=== PATIENT | female | born 1950 | race Caucasian/White ===

== ENCOUNTER 2016-08-02 22:05 | Emergency (ER) | payer MEDICARE, OTHER ==
[~2016-08-02] VITALS: Ht 172.7 cm; Wt 90.9 kg
[2016-08-02 22:08] VITALS: BP 129/76; PULSE 44; RESP 20; O2SAT 97
--- NOTE | 2016-08-02 22:22 | ED.REPORT ---
HPI-Chest Pain 40 and Over Date of Service Aug 02, 2016 ED Provider: Yg Stein MD A 66 year female with a history of A-fib presents to the ED complaining of heart palpitations that began at 1800 this evening. Patient reports feeling weak , SOB with generalized discomfort. Patient's last electrocardioversion was 4 years ago. She currently takes 50 bid of flecainide and aspirin. Patient recently had a mildly abnormal stress test on 07/15 that revealed chronotropic incompetence, left bundle branch block and distal anterior wall and apical hypoperfusion. She denies any chest pain. Nursing Notes Stated Complaint: CHEST PAIN Chief Complaint: Chest Pain Nursing Notes Reviewed: Yes Allergies: Coded Allergies: No Known Allergies (Unverified , 08/02/16) General Time Seen by MD: 22:19 Chief Complaint Other (Palpitations ) Hx Obtained From: Patient Arrived By: Walk-in Sudden in Onset?: No Onset Occurred: 5 - 8 hours ago Symptom Duration: Since onset Location: : Chest left: Chest right Quality: Painful Radiation: : Does not radiate Migration/Movement: Reports: None Severity: Current: Mild Severity: Maximum: Moderate Associated with: Reports: Palpitations, Shortness of Breath, Weakness Pertinent Negative: Pt denies other symptoms Recent Healthcare: No recent hospitalization, Recent doctor visit Risk Factors )( CAD Risk Stratification Risk factors reviewed )( TAD Risk Stratification Risk factors reviewed )( PE Risk Stratification Risk factors reviewed Past Medical History Past Medical History Atrial fibrillation Past Surgical History None reported. Denies pacemaker placement Smoking History Unknown if Ever Smoker Social History Other Social History: Good social support, Local resident Ambulatory Status Independent Review of Systems Constitutional: Reports: Weakness - generalized, Denies: Chills, Fever Respiratory: Reports: Shortness of breath Cardiovascular: Reports: Chest pain (chest discomfort ), Palpitations GI: Denies: Abdominal pain, Nausea, Vomiting Neurologic: Denies: Change LOC Complete sys rev & neg: except as marked. Physical Exam Initial Vital Signs Vital Signs (First) Date Time Temp Pulse Resp B/P Pulse Ox O2 Delivery O2 Flow Rate FiO2 08/02/16 22:08 36.6 44 20 129/76 97 Room Air Initial VS: Reviewed, Vital signs normal Head / Eyes: Atraumatic, Normocephalic, PERRL Extremities: Vascular intact, Neuro intact, No swelling, No tenderness Skin: Warm, Dry, No cyanosis Neurologic: Alert, Oriented, Nonfocal Psychiatric: Mood/affect normal, Behavior normal, Normal thought content General/Constitutional: Awake, Alert Respiratory / Chest: Atraumatic, Breath sounds NL, Breath sounds = bilat, No respiratory distress Cardiovascular: Regular rhythm, Heart sounds NL, Peripheral circulation NL Heart Rate / Rhythm: Positive: Irreg irregular rhythm CARDIO: No edema Abdomen: Atraumatic, Soft Interpretation & Diagnostics Lab Results Interpretation Result Diagram: 08/02/16221908/02/162219 Test 08/02/16 22:20 08/02/16 22:26 White Blood Count 12.9th/mm3 (3.8-10.1) Red Blood Count 4.79mil/mm3 (3.90-5.20) Hemoglobin 14.3g/dL (12.0-15.6) Hematocrit 41.1% (35.0-46.0) Mean Corpuscular Volume 85.8fL (81-100) Mean Corpuscular Hemoglobin 29.9pg (27.0-35.0) Mean Corpuscular Hemoglobin Concent 34.8% (32.0-37.0) Red Cell Distribution Width 12.0% (12.3-15.4) Platelet Count 254bil/L (150-400) Neutrophils (%) (Auto) 53.9% (40-74) Lymphocytes (%) (Auto) 34.4% (14-46) Monocytes (%) (Auto) 9.2% (4-12) Eosinophils (%) (Auto) 1.7% (0-5) Basophils (%) (Auto) 0.4% (0-3) Sodium Level 129mEq/L (134-144) Potassium Level 3.5mEq/L (3.5-5.2) Chloride Level 88mEq/L (97-108) Carbon Dioxide Level 26mmol/L (18-29) Blood Urea Nitrogen 21mg/dL (8-27) Creatinine 0.93mg/dL (0.57-1.00) Estimat Glomerular Filtration Rate 86mL/min (>59) Glucose Level 112mg/dL (60-99) Calcium Level 9.1mg/dL (8.5-10.1) Magnesium Level 1.8mg/dL (1.6-2.6) Total Bilirubin 0.3mg/dL (0.0-1.2) Aspartate Amino Transf (AST/SGOT) 12U/L (0-50) Alanine Aminotransferase (ALT/SGPT) 11U/L (0-32) Alkaline Phosphatase 89U/L (25-165) Troponin T 0.010ug/L (0.0-0.011) Total Protein 6.8g/dL (6.4-8.4) Albumin 4.1g/dL (3.4-5.0) Prothrombin Time 10.4sec (8.1-12.5) Prothromb Time International Ratio 0.97ratio Hold Da Silva Top Tube Received (Received) Lab values outside NL range: no clinical significance. Lab Results Interpretation: Mildly elevated white blood count, negative troponin ECG Interpretation ECG Interpretation: Atrial fibrillation LBBB Rate 112 Time: 22:27 Interpreted by: ED physician ECG Interpretation: Sinus Rhythm Rate 68 LBBB Prolonged IA interval Time: 01:31 Interpreted by: ED physician X-Ray Chest Interpretation Chest Xray Interpretation: IMPRESSION: Normal chest X-ray with clips from right mastectomy Interpretation / Wet Read by: Wet read ED physician Re-Eval/Medical Decision Med Decision/Clinical Course 66-year-old female with a history of paroxysmal A. fib presents with A. fib that started at around 6 PM. She took an extra 50 mg flecainide shortly after that. It makes her very uncomfortable with exercise intolerance and shortness of breath. There has been no chest pain. Lab workup is initially negative. Her rate was never really rapid. Her case was discussed with Dr. Banuelos who recommended cardioversion. She agreed. She has not been on a standard blood thinner so was given a single dose of Eliquis present to the procedure. As we were setting up for the procedure she converted to normal sinus rhythm confirmed by EKG. She will be discharged home to follow up with Dr. Menon, specifically concerning the need for Eliquis or similar blood thinner and whether she should increase her dose of Flecainide Time of Eval: 23:48 Patient Status: Condition improved Re-Evaluation/Progress Note: Patient is rechecked. HR improved slightly. She is informed of her EKG results, X-ray results, lab results and diagnosis. Time of Eval: 00:18 Patient Status: Condition improved Re-Evaluation/Progress Note: Patient is informed of the consultation and is given the choice to cardiovert with Eloquis. She would like the cardioversion. All of the patient's questions are adressed. She understands and agrees with the treatment plan to perform cardioversion. Consultation : Referral / Consult Name: Orlin Clarke MD Consulted With: Cardiology Call Returned at: 00:13 Freight Rate Analyst: Agrees with eval, Agrees with plan Note: Consulted with Dr. Clarke about possible cardioversion or flecainide treatment. Patient has 48 hour windw to choose treatment plan. Recommends Eloquis if patient chooses cardioversion. Counseled Regarding: Diagnosis, Lab results, Need for follow-up, When/why to return to ED Discharge & Departure Primary Impression: Atrial fibrillation with rapid ventricular response Disposition: Home Discharge Condition All VS Reviewed: Yes Condition: Stable Patient Instructions: Atrial Fibrillation (ED) Additional Instructions: Your atrial fibrillation has converted back to a normal sinus rhythm. You were given 1 dose of Eliquis, blood thinner, before you converted. Talk to Dr. Menon about whether you will continue this medication. Return or call me at [phone] between the hours of 9 PM and 6 AM if you have recurrent Afib. Referrals: Letty Anderson (PCP) Noris Attestation Portions of this note were transcribed by Raphael Forman. I, Dr. Stein personally performed the history, physical exam and medical decision-making; I reviewed and confirmed the accuracy of the information in the transcribed note. Signed by: Noris Romano, 08/03/16 0135. copies to: Letty Anderson Howard L MD Aug 02, 2016 22:22 RAPHAEL FORMAN Aug 02, 2016 22:29
[2016-08-02 22:40] LABS: BASOPHILS % (AUTO) 0.4 % (0-3); EOSINOPHILS % (AUTO) 1.7 % (0-5); MONOCYTES % (AUTO) 9.2 % (4-12); Mean Corpuscular Hemoglobin 29.9 pg (27.0-35.0); Mean Corpuscular Volume 85.8 fL (81-100); NEUTROPHILS % (AUTO) 53.9 % (40-74); Platelet Count 254 bil/L (150-400)
[2016-08-02 22:53] LABS: INR 0.97 ratio
[2016-08-02 22:58] LABS: TROPONIN T 0.01 ug/L (0.0-0.011)
[2016-08-02 23:09] LABS: Magnesium 1.8 mg/dL (1.6-2.6)
[2016-08-02 23:45] VITALS: BP 107/58; PULSE 90; RESP 17; O2SAT 95
[2016-08-03] MEDS ORDERED: Etomidate 2 mg/mL 20 mL Inj IV ONE (00:25)
--- NOTE | 2016-08-03 08:10 | DRSVH ---
PROCEDURE: X-RAY CHEST ONE VIEW, PORTABLE ([id number]) INDICATIONS: CP TECHNIQUE: One view of the chest was acquired. COMPARISON: None. FINDINGS: Surgical changes and devices: Patient is status post right axillary raghu dissection. Lungs and pleura: No pleural effusions or pneumothorax. Lungs are clear. Mediastinum: Mediastinal contours appear normal. Heart size is normal. Bones and chest wall: No suspicious bony lesions. Overlying soft tissues appear unremarkable. IMPRESSION: No acute cardiopulmonary findings. Dictated by: Adela Lee M.D. on 08/03/2016 at 8:08 Approved by: Adela Lee M.D. on 08/03/2016 at 8:08
== END 2016-08-03 01:45 | disposition home or self-care (01) ==
LOC: SED 22:05
DX: I48.0 Paroxysmal atrial fibrillation (principal)